=== PATIENT | female | born 2000 | race American Indian/Alaskan Native ===

== ENCOUNTER 2020-10-12 21:39 | Inpatient (IN) | payer BC ==
[2020-10-13] MEDS ORDERED: Sodium Chloride 0.9% 10 ML Syringe FLUSH PRN (00:31)
[2020-10-13] MEDS ORDERED: Ondansetron 4 MG/2 ML SDV IVPUSH PRN (00:31)
[2020-10-13] MEDS ORDERED: Oxytocin/Lactated Ringers 10 UNIT/1,000 ML BAG IV SCH (00:45)
[2020-10-13] MEDS: Lactated Ringers 1,000 ML IV SCH ×2 (01:51→18:26)
[2020-10-13] MEDS: Oxytocin/Lactated Ringers 10 UNIT/1,000 ML BAG IV SCH ×2 (01:52→18:27)
--- NOTE | 2020-10-13 08:48 | PCM.LDHP ---
L&D History of Present Illness - General Date of Service: 10/13/20 Admit Problem/Dx: Patient Status Order with Admit Dx/Problem 10/12/20 21:41 Patient Status [ADT] Routine 10/13/20 00:31 Patient Status [ADT] Routine Admission Diagnosis/Problem Admission Diagnosis/Problem Source of Information: Patient History Limitations: Reports: No Limitations - History of Present Illness Introduction:: 20 y/o at 37 3/7 wks who presented overnight for concerns of abdominal pain. SVE showed similar exam to previous. During assessment, however, was noted to have several mild range BP's. Otherwise doing well. 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: : 1 Para: 0 LMP (Approximate): Endocrine/Metabolic History: Reports: Obesity/BMI 30+ Social & Family History - Family History Family Medical History: No Pertinent Family History - Tobacco Use Tobacco Use Status *Q: Never Tobacco User Second Hand Smoke Exposure: No - Caffeine Use Caffeine Use: Reports: None - Alcohol Use Alcohol Use History: No - Recreational Drug Use Recreational Drug Use: No H&P Review of Systems - Review of Systems: Review Of Systems: See Below General: Reports: No Symptoms Pulmonary: Reports: No Symptoms Cardiovascular: Reports: No Symptoms Gastrointestinal: Reports: No Symptoms Genitourinary: Reports: No Symptoms Musculoskeletal: Reports: No Symptoms Psychiatric: Reports: No Symptoms Neurological: Reports: No Symptoms L&D Exam - Exam Exam: See Below - Vital Signs Vital Signs: Last Vital Signs Temp 36.6 C 10/12/20 21:41 Pulse 70 10/12/20 21:41 Resp 16 10/12/20 21:41 BP 120/82 10/12/20 21:41 Pulse Ox 98 10/12/20 21:41 Weight: 126.099 kg - OB Specific Contraction Intensity: Mild Movement: Active Heart Tones: Present Heart Tones per Min: 130 Heart Rate (FHR) Variability: Moderate (6-25 bmp) Presentation: Vertex - Davidson Score Davidson Score Cervix Position: Midposition Davidson Score Consistency: Soft Davidson Score Effacement: 51-70% Davidson Score Dilation: 3-4 cm Davidson Score Infant's Station: -2 Davidson Score Total: 8 - Exam General: Alert, Oriented, Cooperative Lungs: Clear to Auscultation, Normal Respiratory Effort Cardiovascular: Regular Rate, Regular Rhythm GI/Abdominal Exam: Soft, Non-Tender Genitourinary: Normal external exam Back Exam: Normal Inspection Skin: Warm, Dry, Intact - Patient Data Lab Results Last 24 hrs: Laboratory Results - last 24 hr 10/12/20 10/13/20 10/13/20 Range/Units 22:05 01:00 01:00 WBC 13.71 H (3.98-10.04) K/mm3 RBC 4.43 (3.98-5.22) M/mm3 Hgb 11.4 (11.2-15.7) gm/dl Hct 36.7 (34.1-44.9) % MCV 82.8 (79.4-94.8) fl MCH 25.7 (25.6-32.2) pg MCHC 31.1 L (32.2-35.5) g/dl RDW Std Deviation 42.9 (36.4-46.3) fL Plt Count 291 (182-369) K/mm3 MPV 11.4 (9.4-12.3) fl Neut % (Auto) 72.5 H (34.0-71.1) % Lymph % (Auto) 18.1 L (19.3-51.7) % Dick[place] % (Auto) 7.4 (4.7-12.5) % Eos % (Auto) 0.9 (0.7-5.8) Baso % (Auto) 0.1 (0.1-1.2) % Neut # (Auto) 9.94 H (1.56-6.13) K/mm3 Lymph # (Auto) 2.48 (1.18-3.74) K/mm3 Dickens # (Auto) 1.01 H (0.24-0.36) K/mm3 Eos # (Auto) 0.12 (0.04-0.36) K/mm3 Baso # (Auto) 0.02 (0.01-0.08) K/mm3 Manual Slide Review Normal smear Creatinine 0.8 (0.55-1.02) mg/dL Est Cr Clr Drug Dosing 103.26 mL/min Estimated GFR (MDRD) > 60 (>60) mL/min AST 10 L (15-37) U/L ALT 16 (14-59) U/L Ur Random Creatinine (30.0-125.0) mg/dL U Random Total Protein (0.0-11.8) mg/dL Protein/Creatinin Ratio (0-149) mg/g Membrane Rupture Negative SARS-CoV-2 RNA (MAE) (NEGATIVE) 10/13/20 10/13/20 Range/Units 01:15 01:15 WBC (3.98-10.04) K/mm3 RBC (3.98-5.22) M/mm3 Hgb (11.2-15.7) gm/dl Hct (34.1-44.9) % MCV (79.4-94.8) fl MCH (25.6-32.2) pg MCHC (32.2-35.5) g/dl RDW Std Deviation (36.4-46.3) fL Plt Count (182-369) K/mm3 MPV (9.4-12.3) fl Neut % (Auto) (34.0-71.1) % Lymph % (Auto) (19.3-51.7) % [place] % (Auto) (4.7-12.5) % Eos % (Auto) (0.7-5.8) Baso % (Auto) (0.1-1.2) % Neut # (Auto) (1.56-6.13) K/mm3 Lymph # (Auto) (1.18-3.74) K/mm3 [place] # (Auto) (0.24-0.36) K/mm3 Eos # (Auto) (0.04-0.36) K/mm3 Baso # (Auto) (0.01-0.08) K/mm3 Manual Slide Review Creatinine (0.55-1.02) mg/dL Est Cr Clr Drug Dosing mL/min Estimated GFR (MDRD) (>60) mL/min AST (15-37) U/L ALT (14-59) U/L Ur Random Creatinine 85.0 (30.0-125.0) mg/dL U Random Total Protein 29.8 H (0.0-11.8) mg/dL Protein/Creatinin Ratio 350.6 H (0-149) mg/g Membrane Rupture SARS-CoV-2 RNA (MAE) Negative (NEGATIVE) Result Diagrams: 10/13/20 01:00 10/13/20 01:00 - Problem List (1) 37 weeks gestation of SNOMED Code(s): 13681101 ICD Code: Z3A.37 - 37 WEEKS GESTATION OF Status: Acute Current Visit: Yes (2) Preeclampsia SNOMED Code(s): 464731666 ICD Code: O14.90 - UNSPECIFIED PRE-ECLAMPSIA, UNSPECIFIED TRIMESTER Status: Acute Current Visit: Yes Qualifiers: Trimester: third trimester Qualified Code(s): O14.93 - Unspecified pre- eclampsia, third trimester Problem List Initiated/Reviewed/Updated: Yes Orders Last 24hrs: Active Orders 24 hr Category Date Time Status Patient Status [ADT] Routine ADT 10/13/20 00:31 Active Activity as Tolerated [RC] PFP Care 10/13/20 00:31 Active Communication Order [RC] ASDIRECTED Care 10/13/20 00:31 Active Heart Tones [RC] ASDIRECTED Care 10/13/20 00:32 Active Non Stress Test [RC] PER UNIT ROUTINE Care 10/12/20 21:41 Active Notify Provider [RC] PFP Care 10/13/20 00:31 Active Notify Provider [RC] PRN Care 10/13/20 00:31 Active Peripheral IV Care [RC] . DIRECTED Care 10/13/20 00:32 Active Vaginal Exam [RC] PRN Care 10/12/20 21:42 Active Vital Signs [RC] PER UNIT ROUTINE Care 10/12/20 21:41 Active Consult to Case Management/Stave Log Ripsaw Operator [CONS] Cons 10/13/20 08:29 Active Routine BLOOD BANK HOLD SPECIMEN [BBK] Stat Lab 10/13/20 01:00 Received RAPID PLASMA REAGIN,RPR [CHEM] Routine Lab 10/13/20 01:00 Received Lactated Ringers [Ringers, Lactated] 1,000 ml Med 10/13/20 00:45 Active IV ASDIRECTED Nalbuphine [Nubain] Med 10/13/20 00:31 Active 10 mg IVPUSH Q2H PRN Ondansetron [Zofran] Med 10/13/20 00:31 Active 4 mg IVPUSH Q4H PRN Oxytocin/Lactated Ringers [Pitocin in LR 10 Units/1,000 Med 10/13/20 00:45 Active ML] 10 unit in 1,000 ml IV .CONTINUOUS Oxytocin/Lactated Ringers [Pitocin in LR 10 Units/1,000 Med 10/13/20 00:45 Active ML] 10 unit in 1,000 ml IV TITRATE Sodium Chloride 0.9% [Saline Flush] Med 10/13/20 00:31 Active 10 ml FLUSH ASDIRECTED PRN Electronic Heart Tones Ext w TOCO [WOMSER] Oth 10/13/20 00:31 Ordered Routine Electronic Heart Tones Internal [WOMSER] Per Unit Oth 10/13/20 00:31 Ordered Routine Peripheral IV Insertion Adult [OM.PC] Routine Oth 10/13/20 00:31 Ordered Resuscitation Status Routine Resus Stat 10/12/20 21:41 Ordered Medication Orders Lactated Ringer's (Ringers, Lactated) 1,000 mls @ 100 mls/hr IV ASDIRECTED JOANIE Last Admin: 10/13/20 01:51 Dose: 100 mls/hr Documented by: MIRNA Oxytocin/Lactated Ringer's (Pitocin In Lr 10 Units/1,000 Ml) 10 unit in 1,000 mls @ 500 mls/hr IV .CONTINUOUS JOANIE Oxytocin/Lactated Ringer's (Pitocin In Lr 10 Units/1,000 Ml) 10 unit in 1,000 mls @ 12 mls/hr IV TITRATE JOANIE; Protocol Last Titration: 10/13/20 07:55 Dose: 8 munits/min, 48 mls/hr Documented by: Titration: 10/13/20 04:45 Dose: 6 munits/min, 36 mls/hr Documented by: Titration: 10/13/20 04:16 Dose: 4 munits/min, 24 mls/hr Documented by: Admin: 10/13/20 01:52 Dose: 2 munits/min, 12 mls/hr Documented by: MIRNA Nalbuphine HCl (Nubain) 10 mg IVPUSH Q2H PRN PRN Reason: Pain Ondansetron HCl (Zofran) 4 mg IVPUSH Q4H PRN PRN Reason: Nausea/Vomiting Sodium Chloride (Saline Flush) 10 ml FLUSH ASDIRECTED PRN PRN Reason: Keep Vein Open Assessment/Plan Comment:: Patient with mild range BP's and elevated urine protein to creatinine ratio. Will treat as preeclampsia without severe features. Pitocin previously started for IOL AROM done now at 0230 with release of a large amount of clear fluid. GBS negative. Pain management per patient preference. Anticipate .
[2020-10-13] MEDS: Nalbuphine 10 MG/1 ML Vial IVPUSH PRN ×2 (09:17→15:17)
--- NOTE | 2020-10-13 09:17 | PCM.PNLD ---
Labor Progress Note - VS & Meds Vital Signs: Last Vital Signs Temp 36.6 C 10/12/20 21:41 Pulse 70 10/12/20 21:41 Resp 16 10/12/20 21:41 BP 120/82 10/12/20 21:41 Pulse Ox 98 10/12/20 21:41 Active Medications: Current Medications Lactated Ringer's (Ringers, Lactated) 1,000 mls @ 100 mls/hr IV ASDIRECTED JOANIE Last Admin: 10/13/20 01:51 Dose: 100 mls/hr Documented by: Oxytocin/Lactated Ringer's (Pitocin In Lr 10 Units/1,000 Ml) 10 unit in 1,000 mls @ 500 mls/hr IV .CONTINUOUS JOANIE Oxytocin/Lactated Ringer's (Pitocin In Lr 10 Units/1,000 Ml) 10 unit in 1,000 mls @ 12 mls/hr IV TITRATE JOANIE; Protocol Last Titration: 10/13/20 07:55 Dose: 8 munits/min, 48 mls/hr Documented by: Nalbuphine HCl (Nubain) 10 mg IVPUSH Q2H PRN PRN Reason: Pain Ondansetron HCl (Zofran) 4 mg IVPUSH Q4H PRN PRN Reason: Nausea/Vomiting Sodium Chloride (Saline Flush) 10 ml FLUSH ASDIRECTED PRN PRN Reason: Keep Vein Open - Uterine Contractions Uterine Monitoring Mode: External [place] Contraction Intensity: Moderate - Monitoring Monitor Mode: External Ultrasound Heart Rate (FHR) Baseline: 125 Heart Rate (FHR) Variability: Moderate (6-25 bmp) Accelerations: Present, 15x15 Decelerations: None Strip Review: Category I - Vaginal Exam Dilation (cm): 4-5 Effacement (Percent): 90 Station: -1 Cervical Position: Midposition - Labor Progress (Free Text) Labor Progress: Patient very uncomfortable. Does not want epidural at this time. Going to do d ose of Nubain. BP's continue to be mild range. Pitocin at 8. IUPC placed. Continue present management
--- NOTE | 2020-10-13 15:24 | PCM.SN.2 ---
- Free Text/Narrative Note: 1525 Patient with significant pain. Pitocin at 18. Does not want an epidural. Does not want IUPC in further. Removed per her request. tried to encourage patient . Will given dose of Nubain. Mouna Mazariegos MD
[2020-10-13] MEDS ORDERED: Lidocaine 1% 50 ML MDV ONE (19:16)
[2020-10-13] MEDS ORDERED: Misoprostol 200 MCG Tab ONE (20:32)
[2020-10-13] MEDS ORDERED: ceFAZolin/Dextrose,Iso-Osmotic 2 GM/50 ML Duplex Bag IV ONE (20:53)
[2020-10-13] MEDS ORDERED: Misoprostol 200 MCG Tab PO STA (21:01)
[2020-10-13] MEDS ORDERED: ceFAZolin 2 GM in Premix Bag 1 BAG IV ONE (21:01)
[2020-10-13] MEDS ORDERED: Methylergonovine 0.2 MG/1 ML Amp IM STA (21:01)
[2020-10-13] MEDS ORDERED: Carboprost Tromethamine 250 MCG/1 ML Amp IM ONE (21:01)
--- NOTE | 2020-10-13 21:05 | PCM.DEL ---
L & D Note - General Info Date of Service: 10/13/20 - Delivery Note Labor: Induced by ARM, Induced by Oxytocin Delivery Outcome: Livebirth Infant Delivery Method: Spontaneous Vaginal Delivery-Single Infant Delivery Mode: Spontaneous Presentation: Right Occiput Anterior (DASHAWN) Nuchal Cord: None Anesthesia Type: None Amniotic Fluid Description: Clear Episiotomy Type: None Laceration: Labial (left labial - hemostatic and so not repaired ) Placenta: Intact, Spontaneous Cord: 3 Vessels Estimated Blood Loss: 1,200 Resuscitation Needed: Yes [place]: Bulb Syringe, Stimulated, Warmed, [place] Used, Warmer Used Delivery Comments (Free Text/Narrative):: Patient found to be complete and began pushing. With maternal pushing effort head delivered from DASHAWN presentation. No nuchal cord present. With gentle downward traction shoulders and body delivered. placed on maternal abdomen. Cord clamped and cut. Cord blood obtained. Placenta allowed time to separate and expelled intact. Immediately after hemorrhage noted due to atony. Patient given 600 mcg of buccal Cytotec and 250 mcg of hemabate, but still with moderately terrell bleeding. Given then Tranexamic acid. Multiple sweeps done of uterus and GRADY bringing out more clot . Because of continued atony patient was given 0.2 mg of methergine even with history of preeclampsia. At this time BP's normal range. Finally bleeding did tatianna. Total EBL ~1200. Vaginal exam with small labial laceration on left - not bleeding and so not repaired - General Info Date of Service: 10/13/20 - Patient Data Vitals - Most Recent: Last Vital Signs Temp 36.6 C 10/12/20 21:41 Pulse 70 10/12/20 21:41 Resp 16 10/12/20 21:41 BP 120/82 10/12/20 21:41 Pulse Ox 98 10/12/20 21:41 Weight - Most Recent: 126.099 kg - Problem List & Annotations (1) 37 weeks gestation of SNOMED Code(s): 73600770 Code(s): Z3A.37 - 37 WEEKS GESTATION OF Status: Acute Current Visit: Yes (2) Preeclampsia SNOMED Code(s): 468169109 Code(s): O14.90 - UNSPECIFIED PRE-ECLAMPSIA, UNSPECIFIED TRIMESTER Status: Acute Current Visit: Yes Qualifiers: Trimester: third trimester Qualified Code(s): O14.93 - Unspecified pre- eclampsia, third trimester (3) Vaginal delivery SNOMED Code(s): 580582239 Code(s): O80 - ENCOUNTER FOR FULL-TERM UNCOMPLICATED DELIVERY Status: Acute Current Visit: Yes (4) hemorrhage SNOMED Code(s): 97493312 Code(s): O72.1 - OTHER IMMEDIATE HEMORRHAGE Status: Acute Current Visit: Yes Qualifiers: hemorrhage type: other immediate Qualified Code(s): O72.1 - Other immediate hemorrhage - Problem List Review Problem List Initiated/Reviewed/Updated: Yes - My Orders Last 24 Hours: My Active Orders 10/12/20 21:41 Non Stress Test [RC] PER UNIT ROUTINE Vital Signs [RC] PER UNIT ROUTINE Resuscitation Status Routine 10/12/20 21:42 Vaginal Exam [RC] PRN 10/13/20 00:31 Patient Status [ADT] Routine Activity as Tolerated [RC] PFP Communication Order [RC] ASDIRECTED Notify Provider [RC] PFP Notify Provider [RC] PRN Nalbuphine [Nubain] 10 mg IVPUSH Q2H PRN Ondansetron [Zofran] 4 mg IVPUSH Q4H PRN Sodium Chloride 0.9% [Saline Flush] 10 ml FLUSH ASDIRECTED PRN Electronic Heart Tones Ext w TOCO [WOMSER] Routine Electronic Heart Tones Internal [WOMSER] Per Unit Routine Peripheral IV Insertion Adult [OM.PC] Routine 10/13/20 00:32 Heart Tones [RC] ASDIRECTED Peripheral IV Care [RC] . DIRECTED 10/13/20 00:45 Lactated Ringers [Ringers, Lactated] 1,000 ml IV ASDIRECTED Oxytocin/Lactated Ringers [Pitocin in LR 10 Units/1,000 ML] 10 unit in 1,000 ml IV .CONTINUOUS Oxytocin/Lactated Ringers [Pitocin in LR 10 Units/1,000 ML] 10 unit in 1,000 ml IV TITRATE 10/13/20 01:00 BLOOD BANK HOLD SPECIMEN [BBK] Stat RAPID PLASMA REAGIN,RPR [CHEM] Routine 10/13/20 08:29 Consult to Case Management/Dentist [CONS] Routine 10/13/20 Lunch Regular Diet [DIET] 10/13/20 21:01 Carboprost Tromethamine [Hemabate DS] 250 mcg IM ONETIME ONE Methylergonovine [Methergine] 0.2 mg IM NOW STA Tranexamic Acid [Cyklokapron] 1,000 mg IVPUSH ONETIME ONE ceFAZolin [Ancef] 2 gm Premix Bag 1 bag IV ONETIME miSOPROStoL [Cytotec] 600 mcg PO NOW STA 10/13/20 21:03 Patient Status Manage Transfer [TRANSFER] Routine - Assessment Assessment:: PPD#0 - Plan Plan:: * Monitor BP's closely following delivery. Will need BP check in about 1 week * Monitor bleeding closely. Received Cytotec, Hemabate, Tranexamic acid, and Methergine after delivery. CBC tomorrow at noon. Dose of ancef ordered for multiple sweeps of uterus * Breast feeding * Discharge home in 2 days
[2020-10-13] MEDS ORDERED: Acetaminophen 325 MG Tab PO PRN (21:56)
[2020-10-13] MEDS ORDERED: Witch Hazel Medicated Pads 40/Jar TOP PRN (21:56)
[2020-10-13] MEDS ORDERED: Benzocaine/Menthol 20%-0.5% Spray 56 GM Canister TOP PRN (21:56)
[2020-10-13] MEDS: Ibuprofen 600 MG Tab PO PRN (22:13)
[2020-10-14] MEDS: Lactated Ringers 1,000 ML IV SCH (04:14)
[2020-10-14] MEDS: Docusate Sodium 100 MG Cap PO PRN (09:21)
--- NOTE | 2020-10-14 10:17 | PCM.SN.2 ---
- Free Text/Narrative Note: exam Afebrile, chest clear, uterus at umbilicus -1. No heavy vaginal bleeding. No leg cramping.
[2020-10-14] MEDS: Ibuprofen 600 MG Tab PO PRN ×2 (11:22→18:42)
--- NOTE | 2020-10-15 10:39 | PCM.DCSUM1 ---
Discharge Summary - Hospital Course Free Text/Narrative:: [place] [facility] L/D Delivery Note Patient Name: CATALINO GARCIA Date of : 89 Patient Status: Inpatient Attending Provider: Mouna Mazariegos Date: 10/13/20 21:05 Initialization Date: 10/13/20 21:05 L & D Note - General Info Date of Service: 10/13/20 - Delivery Note Labor: Induced by ARM, Induced by Oxytocin Delivery Outcome: Livebirth Delivery Method: Spontaneous Vaginal Delivery-Single Delivery Mode: Spontaneous Presentation: Right Occiput Anterior (DASHAWN) Nuchal Cord: None Anesthesia Type: None Amniotic Fluid Description: Clear Episiotomy Type: None Laceration: Labial (left labial - hemostatic and so not repaired ) Placenta: Intact, Spontaneous Cord: 3 Vessels Estimated Blood Loss: 1,200 Resuscitation Needed: Yes : Bulb Syringe, Stimulated, Warmed, Winton Used, Warmer Used Delivery Comments (Free Text/Narrative):: Patient found to be complete and began pushing. With maternal pushing effort head delivered from DASHAWN presentation. No nuchal cord present. With gentle downward traction shoulders and body delivered. Infant placed on maternal abdomen. Cord clamped and cut. Cord blood obtained. Placenta allowed time to separate and expelled intact. Immediately after hemorrhage noted due to atony. Patient given 600 mcg of buccal Cytotec and 250 mcg of hemabate, but still with moderately terrell bleeding. Given then Tranexamic acid. Multiple sweeps done of uterus and GRADY bringing out more clot . Because of continued atony patient was given 0.2 mg of methergine even with history of preeclampsia. At this time BP's normal range. Finally bleeding did tatianna. Total EBL ~1200. Vaginal exam with small labial laceration on left - not bleeding and so not repaired - General Info Date of Service: 10/13/20 - Patient Data Vitals - Most Recent: Last Vital Signs Temp 36.6 C 10/12/20 21:41 Pulse 70 10/12/20 21:41 Resp 16 10/12/20 21:41 BP 120/82 10/12/20 21:41 Pulse Ox 98 10/12/20 21:41 Weight - Most Recent: 126.099 kg - Problem List & Annotations (1) 37 weeks gestation of SNOMED Code(s): 32392156 Code(s): Z3A.37 - 37 WEEKS GESTATION OF Status: Acute Current Visit: Yes (2) Preeclampsia SNOMED Code(s): 762532093 Code(s): O14.90 - UNSPECIFIED PRE-ECLAMPSIA, UNSPECIFIED TRIMESTER Status: Acute Current Visit: Yes Qualifiers: Trimester: third trimester Qualified Code(s): O14.93 - Unspecified pre- eclampsia, third trimester (3) Vaginal delivery SNOMED Code(s): 009624881 Code(s): O80 - ENCOUNTER FOR FULL-TERM UNCOMPLICATED DELIVERY Status: Acute Current Visit: Yes (4) hemorrhage SNOMED Code(s): 56340314 Code(s): O72.1 - OTHER IMMEDIATE HEMORRHAGE Status: Acute Current Visit: Yes Qualifiers: hemorrhage type: other immediate Qualified Code(s): O72.1 - Other immediate hemorrhage - Problem List Review Problem List Initiated/Reviewed/Updated: Yes - My Orders Last 24 Hours: My Active Orders 10/12/20 21:41 Non Stress Test [RC] PER UNIT ROUTINE Vital Signs [RC] PER UNIT ROUTINE Resuscitation Status Routine 10/12/20 21:42 Vaginal Exam [RC] PRN 10/13/20 00:31 Patient Status [ADT] Routine Activity as Tolerated [RC] PFP Communication Order [RC] ASDIRECTED Notify Provider [RC] PFP Notify Provider [RC] PRN Nalbuphine [Nubain] 10 mg IVPUSH Q2H PRN Ondansetron [Zofran] 4 mg IVPUSH Q4H PRN Sodium Chloride 0.9% [Saline Flush] 10 ml FLUSH ASDIRECTED PRN Electronic Heart Tones Ext w TOCO [WOMSER] Routine Electronic Heart Tones Internal [WOMSER] Per Unit Routine Peripheral IV Insertion Adult [OM.PC] Routine 10/13/20 00:32 Heart Tones [RC] ASDIRECTED Peripheral IV Care [RC] . DIRECTED 10/13/20 00:45 Lactated Ringers [Ringers, Lactated] 1,000 ml IV ASDIRECTED Oxytocin/Lactated Ringers [Pitocin in LR 10 Units/1,000 ML] 10 unit in 1,000 ml IV .CONTINUOUS Oxytocin/Lactated Ringers [Pitocin in LR 10 Units/1,000 ML] 10 unit in 1,000 ml IV TITRATE 10/13/20 01:00 BLOOD BANK HOLD SPECIMEN [BBK] Stat RAPID PLASMA REAGIN,RPR [CHEM] Routine 10/13/20 08:29 Consult to Case Management/Food Preparation Supervisor [CONS] Routine 10/13/20 Lunch Regular Diet [DIET] 10/13/20 21:01 Carboprost Tromethamine [Hemabate DS] 250 mcg IM ONETIME ONE Methylergonovine [Methergine] 0.2 mg IM NOW STA Tranexamic Acid [Cyklokapron] 1,000 mg IVPUSH ONETIME ONE ceFAZolin [Ancef] 2 gm Premix Bag 1 bag IV ONETIME miSOPROStoL [Cytotec] 600 mcg PO NOW STA 10/13/20 21:03 Patient Status Manage Transfer [TRANSFER] Routine - Assessment Assessment:: PPD#0 - Plan Plan:: * Monitor BP's closely following delivery. Will need BP check in about 1 week * Monitor bleeding closely. Received Cytotec, Hemabate, Tranexamic acid, and Methergine after delivery. CBC tomorrow at noon. Dose of ancef ordered for multiple sweeps of uterus * Breast feeding * Discharge home in 2 days HPI Initial Comments: [place] [facility] L/D Delivery Note Patient Name: CATALINO GARCIA Date of : [birth year] Patient Status: Inpatient Attending Provider: Mouna Mazariegos Date: 10/13/20 21:05 Initialization Date: 10/13/20 21:05 L & D Note - General Info Date of Service: 10/13/20 - Delivery Note Labor: Induced by ARM, Induced by Oxytocin Delivery Outcome: Livebirth Delivery Method: Spontaneous Vaginal Delivery-Single Delivery Mode: Spontaneous Presentation: Right Occiput Anterior (DASHAWN) Nuchal Cord: None Anesthesia Type: None Amniotic Fluid Description: Clear Episiotomy Type: None Laceration: Labial (left labial - hemostatic and so not repaired ) Placenta: Intact, Spontaneous Cord: 3 Vessels Estimated Blood Loss: 1,200 Resuscitation Needed: Yes [place]: Bulb Syringe, Stimulated, Warmed, Winton Used, Warmer Used Delivery Comments (Free Text/Narrative):: Patient found to be complete and began pushing. With maternal pushing effort head delivered from DASHAWN presentation. No nuchal cord present. With gentle downward traction shoulders and body delivered. Infant placed on maternal abdomen. Cord clamped and cut. Cord blood obtained. Placenta allowed time to separate and expelled intact. Immediately after hemorrhage noted due to atony. Patient given 600 mcg of buccal Cytotec and 250 mcg of hemabate, but still with moderately terrell bleeding. Given then Tranexamic acid. Multiple sweeps done of uterus and GRADY bringing out more clot . Because of continued atony patient was given 0.2 mg of methergine even with history of preeclampsia. At this time BP's normal range. Finally bleeding did tatianna. Total EBL ~1200. Vaginal exam with small labial laceration on left - not bleeding and so not repaired - General Info Date of Service: 10/13/20 - Patient Data Vitals - Most Recent: Last Vital Signs Temp 36.6 C 10/12/20 21:41 Pulse 70 10/12/20 21:41 Resp 16 10/12/20 21:41 BP 120/82 10/12/20 21:41 Pulse Ox 98 10/12/20 21:41 Weight - Most Recent: 126.099 kg - Problem List & Annotations (1) 37 weeks gestation of SNOMED Code(s): 13594347 Code(s): Z3A.37 - 37 WEEKS GESTATION OF Status: Acute Current Visit: Yes (2) Preeclampsia SNOMED Code(s): 710781641 Code(s): O14.90 - UNSPECIFIED PRE-ECLAMPSIA, UNSPECIFIED TRIMESTER Status: Acute Current Visit: Yes Qualifiers: Trimester: third trimester Qualified Code(s): O14.93 - Unspecified pre- eclampsia, third trimester (3) Vaginal delivery SNOMED Code(s): 570425687 Code(s): O80 - ENCOUNTER FOR FULL-TERM UNCOMPLICATED DELIVERY Status: Acute Current Visit: Yes (4) hemorrhage SNOMED Code(s): 42013300 Code(s): O72.1 - OTHER IMMEDIATE HEMORRHAGE Status: Acute Current Visit: Yes Qualifiers: hemorrhage type: other immediate Qualified Code(s): O72.1 - Other immediate hemorrhage - Problem List Review Problem List Initiated/Reviewed/Updated: Yes - My Orders Last 24 Hours: My Active Orders 10/12/20 21:41 Non Stress Test [RC] PER UNIT ROUTINE Vital Signs [RC] PER UNIT ROUTINE Resuscitation Status Routine 10/12/20 21:42 Vaginal Exam [RC] PRN 10/13/20 00:31 Patient Status [ADT] Routine Activity as Tolerated [RC] PFP Communication Order [RC] ASDIRECTED Notify Provider [RC] PFP Notify Provider [RC] PRN Nalbuphine [Nubain] 10 mg IVPUSH Q2H PRN Ondansetron [Zofran] 4 mg IVPUSH Q4H PRN Sodium Chloride 0.9% [Saline Flush] 10 ml FLUSH ASDIRECTED PRN Electronic Heart Tones Ext w TOCO [WOMSER] Routine Electronic Heart Tones Internal [WOMSER] Per Unit Routine Peripheral IV Insertion Adult [OM.PC] Routine 10/13/20 00:32 Heart Tones [RC] ASDIRECTED Peripheral IV Care [RC] . DIRECTED 10/13/20 00:45 Lactated Ringers [Ringers, Lactated] 1,000 ml IV ASDIRECTED Oxytocin/Lactated Ringers [Pitocin in LR 10 Units/1,000 ML] 10 unit in 1,000 ml IV .CONTINUOUS Oxytocin/Lactated Ringers [Pitocin in LR 10 Units/1,000 ML] 10 unit in 1,000 ml IV TITRATE 10/13/20 01:00 BLOOD BANK HOLD SPECIMEN [BBK] Stat RAPID PLASMA REAGIN,RPR [CHEM] Routine 10/13/20 08:29 Consult to Case Management/Food Preparation Supervisor [CONS] Routine 10/13/20 Lunch Regular Diet [DIET] 10/13/20 21:01 Carboprost Tromethamine [Hemabate DS] 250 mcg IM ONETIME ONE Methylergonovine [Methergine] 0.2 mg IM NOW STA Tranexamic Acid [Cyklokapron] 1,000 mg IVPUSH ONETIME ONE ceFAZolin [Ancef] 2 gm Premix Bag 1 bag IV ONETIME miSOPROStoL [Cytotec] 600 mcg PO NOW STA 10/13/20 21:03 Patient Status Manage Transfer [TRANSFER] Routine - Assessment Assessment:: PPD#0 - Plan Plan:: * Monitor BP's closely following delivery. Will need BP check in about 1 week * Monitor bleeding closely. Received Cytotec, Hemabate, Tranexamic acid, and Methergine after delivery. CBC tomorrow at noon. Dose of ancef ordered for multiple sweeps of uterus * Breast feeding * Discharge home in 2 days Brief History: [facility] L[facility] . L[facility]D Delivery [facility]. [id number]. Date of : [birth year]Patient Status: Inpatient. Attending Provider: Mouna Mazariegos CAccount Number: [id number]. Date: 10/13/20 21:05Initialization Date: 10/13/20 21:05. L & D Note. - General Info. Date of Service: 10/13/20. - Delivery Note. Labor: Induced by ARM, Induced by Oxytocin. Delivery Outcome: Livebirth. Infant Delivery Method: Spontaneous Vaginal Delivery-Single. Delivery Mode: Spontaneous. Presentation: Right Occiput Anterior (DASHAWN). Nuchal Cord: None. Anesthesia Type: None. Amniotic Fluid Description: Clear. Episiotomy Type: None. Laceration: Labial (left labial - hemostatic and so not repaired ). Placenta: Intact, Spontaneous. Cord: 3 Vessels. Estimated Blood Loss: 1,200. Resuscitation Needed: Yes. : Bulb Syringe, Stimulated, Warmed, Winton Used, Warmer Used. Delivery Comments (Free Text/Narrative):: Patient found to be complete and began pushing. With maternal pushing effort head delivered from DASHAWN presentation. No nuchal cord present. With gentle downward traction shoulders and body delivered. Infant placed on maternal abdomen. Cord clamped and cut. Cord blood obtained. Placenta allowed time to separate and expelled intact. Immediately after hemorrhage noted due to atony. Patient given 600 mcg of buccal Cytotec and 250 mcg of hemabate, but still with moderately terrell bleeding. Given then Tranexamic acid. Multiple sweeps done of uterus and GRADY bringing out more clot . Because of continued a christy patient was given 0.2 mg of methergine even with history of preeclampsia. At this time BP's normal range. Finally bleeding did tatianna. Total EBL ~1200. Vaginal exam with small labial laceration on left - not bleeding and so not repaired. - General Info. Date of Service: 10/13/20. - Patient Data. Vitals - Most Recent: Last Vital Signs. Temp 36.6 C 10/12/20 21:41. Pulse 70 10/12/20 21:41. Resp 16 10/12/20 21:41. BP 120/82 10/12/20 21:41. Pulse Ox 98 10/12/20 21:41. Weight - Most Recent: 126.099 kg. - Problem List & Annotations. (1) 37 weeks gestation of . SNOMED Code(s): 38523509. Code(s): Z3A.37 - 37 WEEKS GESTATION OF Status: Acute Current Visit: Yes. (2) Preeclampsia. SNOMED Code(s): 016878793. Code(s): O14.90 - UNSPECIFIED PRE-ECLAMPSIA, UNSPECIFIED TRIMESTER Status: Acute Current Visit: Yes. Qualifiers: Trimester: third trimester Qualified Code(s): O14.93 - Unspecified pre-eclampsia, third trimester. (3) Vaginal delivery. SNOMED Code(s): 956769190. Code(s): O80 - ENCOUNTER FOR FULL-TERM UNCOMPLICATED DELIVERY Status: Acute Current Visit: Yes. (4) hemorrhage. SNOMED Code(s): 59124535. Code(s): O72.1 - OTHER IMMEDIATE HEMORRHAGE Status: Acute Current Visit: Yes. Qualifiers: hemorrhage type: other immediate Qualified Code(s): O72.1 - Other immediate hemorrhage. - Problem List Review. Problem List Initiated/Reviewed/Updated: Yes. - My Orders. Last 24 Hours: My Active Orders. 10/12/20 21:41. Non Stress Test [RC] PER UNIT ROUTINE. Vital Signs [RC] PER UNIT ROUTINE. Resuscitation Status Routine. 10/12/20 21:42. Vaginal Exam [RC] PRN. 10/13/20 00:31. Patient Status [ADT] Routine. Activity as Tolerated [RC] PFP. Communication Order [RC] ASDIRECTED. Notify Provider [RC] PFP. Notify Provider [RC] PRN. Nalbuphine [Nubain] 10 mg IVPUSH Q2H PRN. Ondansetron [Zofran] 4 mg IVPUSH Q4H PRN. Sodium Chloride 0.9% [Saline Flush] 10 ml FLUSH ASDIRECTED PRN. Electronic Heart Tones Ext w TOCO [WOMSER] Routine. Electronic Heart Tones Internal [WOMSER] Per Unit Routine. Peripheral IV Insertion Adult [OM.PC] Routine. 10/13/20 00:32. Heart Tones [RC] ASDIRECTED. Peripheral IV Care [RC] . DIRECTED. 10/13/20 00:45. Lactated Ringers [Ringers, Lactated] 1,000 ml IV ASDIRECTED. Oxytocin/Lactated Ringers [Pitocin in LR 10 Units/1,000 ML] 10 unit in 1,000 ml IV .CONTINUOUS. Oxytocin/Lactated Ringers [Pitocin in LR 10 Units/1,000 ML] 10 unit in 1,000 ml IV TITRATE. 10/13/20 01:00. BLOOD BANK HOLD SPECIMEN [BBK] Stat. RAPID PLASMA REAGIN,RPR [CHEM] Routine. 10/13/20 08:29. Consult to Case Management/Food Preparation Supervisor [CONS] Routine. 10/13/20 Lunch. Regular Diet [DIET]. 10/13/20 21:01. Carboprost Tromethamine [Hemabate DS] 250 mcg IM ONETIME ONE. Methylergonovine [Methergine] 0.2 mg IM NOW STA. Tranexamic Acid [Cyklokapron] 1,000 mg IVPUSH ONETIME ONE. ceFAZolin [Ancef] 2 gm Premix Bag 1 bag IV ONETIME. miSOPROStoL [Cytotec] 600 mcg PO NOW STA. 10/13/20 21:03. Patient Status Manage Transfer [TRANSFER] Routine. - Assessment. Assessment:: PPD#0. - Plan. Plan:: Monitor BP's closely following delivery. Will need BP check in about 1 week. Monitor bleeding closely. Received Cytotec, Hemabate, Tranexamic acid, and Methergine after delivery. CBC tomorrow at noon. Dose of ancef ordered for multiple sweeps of uterus. Breast feeding. Discharge home in 2 days Diagnosis: Stroke: No - Discharge Data Discharge Date: 10/15/20 Discharge Disposition: Home, Self-Care 01 Condition: Good - Referral to Home Health Primary Care Physician: Mouna Mazariegos MD - Discharge Diagnosis/Problem(s) (1) Anemia, SNOMED Code(s): 729979107 ICD Code: O90.81 - ANEMIA OF THE PUERPERIUM Status: Acute Current Visit: Yes (2) 37 weeks gestation of SNOMED Code(s): 84740279 ICD Code: Z3A.37 - 37 WEEKS GESTATION OF Status: Acute Current Visit: Yes (3) Preeclampsia SNOMED Code(s): 781343116 ICD Code: O14.90 - UNSPECIFIED PRE-ECLAMPSIA, UNSPECIFIED TRIMESTER Status: Acute Current Visit: Yes Qualifiers: Trimester: third trimester Qualified Code(s): O14.93 - Unspecified pre- eclampsia, third trimester (4) Vaginal delivery SNOMED Code(s): 257565956 ICD Code: O80 - ENCOUNTER FOR FULL-TERM UNCOMPLICATED DELIVERY Status: Acute Current Visit: Yes (5) hemorrhage SNOMED Code(s): 92522065 ICD Code: O72.1 - OTHER IMMEDIATE HEMORRHAGE Status: Acute Current Visit: Yes Qualifiers: hemorrhage type: third-stage Qualified Code(s): O72.0 - Third- stage hemorrhage - Patient Summary/Data Complications: none Consults: none Hospital Course: uneventful - Patient Instructions Diet: Usual Diet as Tolerated Driving: Do Not Drive (48 hours) Showering/Bathing: May Shower Notify Provider of: Fever, Increased Pain, Swelling and Redness, Drainage, Nausea and/or Vomiting - Discharge Plan *PRESCRIPTION DRUG MONITORING PROGRAM REVIEWED*: Not Applicable *COPY OF PRESCRIPTION DRUG MONITORING REPORT IN PATIENT LENNIE: Not Applicable Prescriptions/Med Rec: Iron,Carbonyl/Ascorbic Acid [Iron 100-Vitamin C Tablet] 1 each PO TID #100 tablet Home Medications: Home Meds Vits #93/Iron Fum/FA [ Formula Tablet] 1 each PO DAILY 10/12/20 [History] Acetaminophen [Tylenol] 650 mg PO Q6H PRN tablet 10/15/20 [Rx] Docusate Sodium [Colace] 100 mg PO BID PRN cap 10/15/20 [Rx] Ibuprofen [Motrin] 600 mg PO Q6H PRN tablet 10/15/20 [Rx] Iron,Carbonyl/Ascorbic Acid [Iron 100-Vitamin C Tablet] 1 each PO TID #100 tablet 10/15/20 [Rx] witch Ana Cristina [Tucks] 1 pad TOP ASDIRECTED PRN pad 10/15/20 [Rx] Referrals: Mouna Mazariegos MD [Primary Care Provider] - (Call Dr. Mazariegos's office Friday to make appointment to see her in 2 to 3 weeks) - Discharge Summary/Plan Comment DC Time >30 min.: No - Patient Data Vitals - Most Recent: Last Vital Signs Temp 97.5 F 10/15/20 08:29 Pulse 96 10/15/20 08:29 Resp 16 10/15/20 08:29 BP 126/62 10/15/20 08:29 Pulse Ox 98 10/15/20 08:29 Weight - Most Recent: 278 lb I&O - Last 24 hours: Intake & Output 10/14/20 10/15/20 10/15/20 22:59 06:59 14:59 Intake Total 680 Balance 680 Lab Results - Last 24 hrs: Laboratory Results - last 24 hr 10/14/20 10/15/20 Range/Units 12:00 08:24 WBC 23.08 H 19.34 H (3.98-10.04) K/mm3 RBC 2.97 L 2.93 L (3.98-5.22) M/mm3 Hgb 7.6 L D 7.5 L (11.2-15.7) gm/dl Hct 24.5 L 24.7 L (34.1-44.9) % MCV 82.5 84.3 (79.4-94.8) fl MCH 25.6 25.6 (25.6-32.2) pg MCHC 31.0 L 30.4 L (32.2-35.5) g/dl RDW Std Deviation 41.7 43.8 (36.4-46.3) fL Plt Count 232 253 (182-369) K/mm3 MPV 11.0 11.4 (9.4-12.3) fl Neut % (Auto) 78.0 H (34.0-71.1) % Lymph % (Auto) 14.7 L (19.3-51.7) % Davison % (Auto) 4.8 (4.7-12.5) % Eos % (Auto) 1.3 (0.7-5.8) Baso % (Auto) 0.2 (0.1-1.2) % Neut # (Auto) 15.08 H (1.56-6.13) K/mm3 Lymph # (Auto) 2.84 (1.18-3.74) K/mm3 Davison # (Auto) 0.93 H (0.24-0.36) K/mm3 Eos # (Auto) 0.25 (0.04-0.36) K/mm3 Baso # (Auto) 0.04 (0.01-0.08) K/mm3 Manual Slide Review Abnormal smear Med Orders - Current: Current Medications Acetaminophen (Tylenol) 650 mg PO Q4H PRN PRN Reason: mild pain or fever Benzocaine/Menthol (Dermoplast Pain Relief [place]) 0 gm TOP ASDIRECTED PRN PRN Reason: Perineal Comfort Measure Docusate Sodium (Colace) 100 mg PO BID PRN PRN Reason: Constipation Last Admin: 10/14/20 09:21 Dose: 100 mg Documented by: Ibuprofen (Motrin) 600 mg PO Q6H PRN PRN Reason: Mild pain or fever Last Admin: 10/14/20 18:42 Dose: 600 mg Documented by: Chiki Weeks (Rust) 1 pad TOP ASDIRECTED PRN PRN Reason: Perineal Comfort Measure Last Admin: 10/15/20 04:05 Dose: 1 tub Documented by: Discontinued Medications Carboprost Tromethamine (Hemabate Ds) 250 mcg IM ONETIME ONE Stop: 10/13/20 21:02 Last Admin: 10/13/20 20:41 Dose: 250 mcg Documented by: Cefazolin Sodium/Dextrose (Ancef) Confirm Administered Dose 2 gm IV .STK-MED ONE Stop: 10/13/20 20:54 Last Admin: 10/14/20 04:17 Dose: Not Given Documented by: Lactated Ringer's (Ringers, Lactated) 1,000 mls @ 100 mls/hr IV ASDIRECTED JOANIE Last Admin: 10/14/20 04:14 Dose: 500 mls/hr Documented by: Oxytocin/Lactated Ringer's (Pitocin In Lr 10 Units/1,000 Ml) 10 unit in 1,000 mls @ 500 mls/hr IV .CONTINUOUS JOANIE Oxytocin/Lactated Ringer's (Pitocin In Lr 10 Units/1,000 Ml) 10 unit in 1,000 mls @ 12 mls/hr IV TITRATE JOANIE; Protocol Last Titration: 10/13/20 20:45 Dose: 166.5 munits/min, 999 mls/hr Documented by: Cefazolin Sodium/Dextrose 2 gm (/ Premix) 50 mls @ 100 mls/hr IV ONETIME ONE Stop: 10/13/20 21:30 Last Admin: 10/13/20 21:00 Dose: 100 mls/hr Documented by: Lidocaine HCl (Xylocaine 1%) Confirm Administered Dose 50 ml .ROUTE .STK-MED ONE Stop: 10/13/20 19:17 Last Admin: 10/14/20 04:17 Dose: Not Given Documented by: Methylergonovine Maleate (Methergine) 0.2 mg IM NOW STA Stop: 10/13/20 21:02 Last Admin: 10/13/20 20:50 Dose: 0.2 mg Documented by: Misoprostol (Cytotec) Confirm Administered Dose 600 mcg .ROUTE .STK-MED ONE Stop: 10/13/20 20:33 Last Admin: 10/14/20 04:17 Dose: Not Given Documented by: Misoprostol (Cytotec) 600 mcg PO NOW STA Stop: 10/13/20 21:02 Last Admin: 10/13/20 20:35 Dose: 600 mcg Documented by: Nalbuphine HCl (Nubain) 10 mg IVPUSH Q2H PRN PRN Reason: Pain Last Admin: 10/13/20 15:17 Dose: 10 mg Documented by: Ondansetron HCl (Zofran) 4 mg IVPUSH Q4H PRN PRN Reason: Nausea/Vomiting Last Admin: 10/13/20 21:20 Dose: 4 mg Documented by: Sodium Chloride (Saline Flush) 10 ml FLUSH ASDIRECTED PRN PRN Reason: Keep Vein Open Tranexamic Acid (Cyklokapron) Confirm Administered Dose 1,000 mg .ROUTE .STK-MED ONE Stop: 10/13/20 20:42 Last Admin: 10/14/20 04:17 Dose: Not Given Documented by: Tranexamic Acid (Cyklokapron) 1,000 mg IVPUSH ONETIME ONE Stop: 10/13/20 21:02 Last Admin: 10/13/20 20:45 Dose: 1,000 mg Documented by:
[2020-10-15] MEDS ORDERED: Prenatal Multivitamin with Calcium/Folic Acid/Iron Tab PO SCH (10:45)
[2020-10-15] MEDS: Ferrous Sulfate 324 MG Tab.EC PO SCH ×2 (10:53→17:54)
[2020-10-15] MEDS: Ibuprofen 600 MG Tab PO PRN (10:53)
[2020-10-15] MEDS: Docusate Sodium 100 MG Cap PO PRN (10:53)
== END 2020-10-15 17:00 | disposition home or self-care (01) | DRG 560 ==
LOC: JD.OBCHECK 21:39 → JD.OB 21:39 → JD.OBCHECK 10-13 00:30 → JD.OB 10-13 00:31 → OBSVTOIN 10-13 20:24 → JD.OB 10-13 20:35
PROVIDERS: ADMIT Obstetrics & Gynecology; ATTEND Obstetrics & Gynecology
PROC: 10E0XZZ Delivery of Products of Conception, External Approach (ICD-10-PCS; principal; 2020-10-13)
PROC: 10907ZC Drainage of Amniotic Fluid, Therapeutic from Products of Conception, Via Natural or Artificial Opening (ICD-10-PCS; 2020-10-13)
PROC: 3E033VJ Introduction of Other Hormone into Peripheral Vein, Percutaneous Approach (ICD-10-PCS; 2020-10-13)
PROC: 3E0P7VZ Introduction of Hormone into Female Reproductive, Via Natural or Artificial Opening (ICD-10-PCS; 2020-10-13)
PROC: 10H07YZ Insertion of Other Device into Products of Conception, Via Natural or Artificial Opening (ICD-10-PCS; 2020-10-13)
DX: O14.04 Mild to moderate pre-eclampsia, complicating childbirth (principal); Z3A.37 37 weeks gestation of pregnancy; Z37.0 Single live birth; O72.1 Other immediate postpartum hemorrhage; O90.81 Anemia of the puerperium; O72.0 Third-stage hemorrhage; Z20.828 Contact with and (suspected) exposure to other viral communicable diseases; O99.214 Obesity complicating childbirth; E66.9 Obesity, unspecified; Z91.030 Bee allergy status; Z88.1 Allergy status to other antibiotic agents; D62 Acute posthemorrhagic anemia
CPT/HCPCS: 36415; 59025; 59409; 82565; 82570; 84112; 84156; 84450; 84460; 85025; 85027; 86592; A9270-GY; J0690; J2210; J2300; J2405; J2590; J7120; U0002

== ENCOUNTER 2021-04-03 23:31 | Emergency (ER) | payer BC ==
--- NOTE | 2021-04-04 00:13 | EDM.PDOC ---
ED HPI GENERAL MEDICAL PROBLEM - General Chief Complaint: PROCESSING ARCHIVIST Problem Stated Complaint: 3WKS /BLEEDING HEAVY Time Seen by Provider: 04/03/21 23:42 Source of Information: Reports: Patient History Limitations: Reports: No Limitations - History of Present Illness INITIAL COMMENTS - FREE TEXT/NARRATIVE: Ms. Gibson is a very pleasant 21-year-old woman who now presents to the ED due to concerns about her early . She states that she had a positive home test on 03/21/2021, with her LMP 02/22/2021, giving her a gestational age of 5 weeks 5 days, MAGGI 11/29/2021. She is G2, P0101. She states that at the same time, she developed abdominal pain, headache, cough, and chills. She went to [place] that same day, and was diagnosed with COVID- 19. She has been quarantining since. She now presents the ED stating that she has had pelvic cramps for about 1 week, along with chills and a headache. She began spotting yesterday, then passed a small quantity of some clots tonight. She states that the quantity is less than 1 pad. Here in the ED, the patient was initially found to be tachycardic at 113 bpm, otherwise, she is hemodynamic stable, afebrile, saturating 96% on room air. The patient does not have a PCP or PROCESSING ARCHIVIST. Abdomen Pain Score (Numeric/FACES): 8 - Related Data Allergies Allergy/AdvReac Type Severity Reaction Status Date / Time azithromycin [From Zithromax] Allergy Severe Anaphylactic Verified 10/12/20 21:50 Shock bee pollen Allergy Severe Difficulty Verified 10/12/20 21:50 Breathing Home Meds: Home Meds Vits #93/Iron Fum/FA [ Formula Tablet] 1 each PO DAILY 10/12/20 [History] Acetaminophen [Tylenol] 650 mg PO Q6H PRN tablet 10/15/20 [Rx] Past Medical History : 2 Para: 1 Endocrine/Metabolic History: Reports: Obesity/BMI 30+ Social & Family History - Family History Family Medical History: No Pertinent Family History - Tobacco Use Tobacco Use Status *Q: Never Tobacco User - Caffeine Use Caffeine Use: Reports: None - Alcohol Use Alcohol Use History: No - Recreational Drug Use Recreational Drug Use: No - Living Situation & Occupation Living situation: Reports: Single, with Family (Daughter) Occupation: Unemployed ED ROS GENERAL - Review of Systems Review Of Systems: Comprehensive ROS is negative, except as noted in HPI. ED EXAM - Physical Exam Exam: See Below Exam Limited By: No Limitations General Appearance: Alert, WD/WN, No Apparent Distress Eye Exam: Bilateral Eye: EOMI, Normal Inspection Ears: Normal External Exam, Hearing Grossly Normal Nose: Normal Inspection Throat/Mouth: Normal Inspection, Normal Lips, Normal Voice, No Airway Compromise Head: Atraumatic, Normocephalic Neck: Normal Inspection, Full Range of Motion Respiratory/Chest: No Respiratory Distress, Lungs Clear, Normal Breath Sounds, No Accessory Muscle Use Cardiovascular: Normal Peripheral Pulses, Regular Rate, Rhythm, No Gallop, No JVD, No Murmur, No Rub GI/Abdominal Exam: Normal Bowel Sounds, Soft, Non-Tender (including suprapubically), No Organomegaly, No Distention, No Abnormal Bruit, No Mass (Female) Exam: Normal External Exam, Normal Speculum Exam, Other (Small amount of bloody mucus at the introitus, but no new or old blood in the vagina. The parous cervix is closed, with a visible mucous plug.) Back Exam: Normal Inspection, Full Range of Motion, NT Extremities: Normal Inspection, Normal Range of Motion, Normal Capillary Refill Neurological: Alert, Oriented, Normal Cognition, No Motor/Sensory Deficits Psychiatric: Normal Affect Skin Exam: Warm, Dry, Intact, Normal Color, No Rash Course - Vital Signs Last Recorded V/S: Last Vital Signs Temp 36.4 C 04/03/21 23:43 Pulse 113 H 04/03/21 23:43 Resp 15 04/03/21 23:43 BP 118/75 04/03/21 23:43 Pulse Ox 96 04/03/21 23:43 - Orders/Labs/Meds Orders: Active Orders 24 hr Category Date Time Status OB Transvaginal [US] Stat Exams 04/04/21 00:03 Taken PATIENT RETYPE [BBK] Routine Lab 04/04/21 01:26 Ordered Labs: Laboratory Tests 04/04/21 04/04/21 04/04/21 Range/Units 00:26 00:26 00:26 WBC 6.32 (3.98-10.04) K/mm3 RBC 5.48 H (3.98-5.22) M/mm3 Hgb 12.2 D (11.2-15.7) gm/dl Hct 39.8 (34.1-44.9) % MCV 72.6 L D (79.4-94.8) fl MCH 22.3 L (25.6-32.2) pg MCHC 30.7 L (32.2-35.5) g/dl RDW Std Deviation 49.6 H (36.4-46.3) fL Plt Count 237 (182-369) K/mm3 MPV 11.0 (9.4-12.3) fl Neut % (Auto) 68.3 (34.0-71.1) % Lymph % (Auto) 24.1 (19.3-51.7) % [place] % (Auto) 6.5 (4.7-12.5) % Eos % (Auto) 0.2 L (0.7-5.8) Baso % (Auto) 0.3 (0.1-1.2) % Neut # (Auto) 4.32 (1.56-6.13) K/mm3 Lymph # (Auto) 1.52 (1.18-3.74) K/mm3 [place] # (Auto) 0.41 H (0.24-0.36) K/mm3 Eos # (Auto) 0.01 L (0.04-0.36) K/mm3 Baso # (Auto) 0.02 (0.01-0.08) K/mm3 Manual Slide Review Abnormal smear HCG, Quant 8411.0 mIU/mL Urine Color (Yellow) Urine Appearance (Clear) Urine pH (5.0-8.0) Ur Specific [place] (1.005-1.030) Urine Protein (Negative) Urine Glucose (UA) (Negative) Urine Ketones (Negative) Urine Occult Blood (Negative) Urine Nitrite (Negative) Urine Bilirubin (Negative) Urine Urobilinogen (0.2-1.0) Ur Leukocyte Esterase (Negative) Urine RBC (0-5) /hpf Urine WBC (0-5) /hpf Ur Squamous Epith Cells (0-5) /hpf Urine Bacteria (FEW) /hpf Urine Mucus (FEW) /hpf Blood Type A POSITIVE 04/04/21 Range/Units 00:32 WBC (3.98-10.04) K/mm3 RBC (3.98-5.22) M/mm3 Hgb (11.2-15.7) gm/dl Hct (34.1-44.9) % MCV (79.4-94.8) fl MCH (25.6-32.2) pg MCHC (32.2-35.5) g/dl RDW Std Deviation (36.4-46.3) fL Plt Count (182-369) K/mm3 MPV (9.4-12.3) fl Neut % (Auto) (34.0-71.1) % Lymph % (Auto) (19.3-51.7) % [place] % (Auto) (4.7-12.5) % Eos % (Auto) (0.7-5.8) Baso % (Auto) (0.1-1.2) % Neut # (Auto) (1.56-6.13) K/mm3 Lymph # (Auto) (1.18-3.74) K/mm3 [place] # (Auto) (0.24-0.36) K/mm3 Eos # (Auto) (0.04-0.36) K/mm3 Baso # (Auto) (0.01-0.08) K/mm3 Manual Slide Review HCG, Quant mIU/mL Urine Color Yellow (Yellow) Urine Appearance Clear (Clear) Urine pH 6.0 (5.0-8.0) Ur Specific [place] 1.025 (1.005-1.030) Urine Protein 2+ H (Negative) Urine Glucose (UA) Negative (Negative) Urine Ketones Negative (Negative) Urine Occult Blood 2+ H (Negative) Urine Nitrite Negative (Negative) Urine Bilirubin Negative (Negative) Urine Urobilinogen 0.2 (0.2-1.0) Ur Leukocyte Esterase 1+ H (Negative) Urine RBC 0-5 (0-5) /hpf Urine WBC 5-10 H (0-5) /hpf Ur Squamous Epith Cells 5-10 H (0-5) /hpf Urine Bacteria Moderate H (FEW) /hpf Urine Mucus Rare (FEW) /hpf Blood Type - Re-Assessments/Exams Free Text/Narrative Re-Assessment/Exam: 04/04/21 00:05 As above, the patient discovered that she was , but was also diagnosed with COVID-19 2 weeks ago. With an LMP of 02/22/2021, she is 5 weeks 5 days gest ation. She has had pelvic cramps for about a week, developed spotting yesterday, then started passing a small quantity of clots tonight. Her physical exam is completely unremarkable. On pelvic examination, there was a slight amount of bloody mucus at the introitus, however, there was no new or old blood in the vagina, and her cervix was closed with a visible mucous plug. I have ordered a CBC, quantitative hCG, ABO/Rh, urinalysis, and a transvaginal ultrasound to evaluate for an ectopic . 04/04/21 02:03 The patient's CBC is unremarkable. Her quantitative hCG is 8411. Her blood type is A-Positive. Her urinalysis is remarkable for 2+ occult blood with 0-5 RBCs, 1+ leukocyte esterase with 5-10 WBCs, nitrate negative with moderate bacteria, and 5-10 squamous epithelial cells. Transvaginal ultrasound is read by [facility] as: 1. Small intrauterine gestational sac containing yolk sac with embryo not yet identified. Follow-up is needed to establish viability. 2. Small left ovarian lesion which is consistent with corpus luteum. 3. Minimal simple appearing free pelvic fluid which may be physiologic. 04/04/21 02:06 Test results discussed with the patient. As above, the ultrasound confirms an intrauterine , and effectively excludes an ectopic , however, her is so early that viability cannot yet be determined. I will discharge the patient home with a referral to Dr. Mazariegos, to establish an PROCESSING ARCHIVIST. Departure - Departure Time of Disposition: 02:07 Disposition: Home, Self-Care 01 Condition: Good Clinical Impression: - Discharge Information *PRESCRIPTION DRUG MONITORING PROGRAM REVIEWED*: Not Applicable *COPY OF PRESCRIPTION DRUG MONITORING REPORT IN PATIENT LENNIE: Not Applicable Referrals: PCP,None [Primary Care Provider] - Mouna Mazariegos MD [Physician] - Forms: ED Department Discharge Additional Instructions: You were seen in the emergency room after developing spotting yesterday, and passing a small quantity of clots today, in the setting of early . Work-up in the ER included several blood tests, urinalysis, and an obstetric ultrasound. Your ultrasound confirmed an intrauterine , however, the is still early, that viability cannot be determined. The remainder of your work-up was unremarkable. You do not have a urinary tract infection. Your blood type is A-Positive. You may take [id number] Tylenol as needed for discomfort. Do not take ibuprofen or naproxen. You may follow-up with the Tile Inspector Dr. Mouna Mazariegos, to establish an PROCESSING ARCHIVIST. If any other problems, please do not hesitate to return to the ER. Sepsis Event Note (ED) - Evaluation Sepsis Screening Result: No Definite Risk - Focused Exam Vital Signs: Vital Signs Temp Pulse Resp BP Pulse Ox 04/03/21 23:43 36.4 C 113 H 15 118/75 96 - My Orders Last 24 Hours: My Active Orders 04/04/21 00:03 OB Transvaginal [US] Stat 04/04/21 01:26 PATIENT RETYPE [BBK] Routine - Assessment/Plan Last 24 Hours: My Active Orders 04/04/21 00:03 OB Transvaginal [US] Stat 04/04/21 01:26 PATIENT RETYPE [BBK] Routine
--- NOTE | 2021-04-04 08:02 | US ---
First trimester obstetrical ultrasound: Multiple real-time images were obtained transvaginally. Comparison: No prior obstetrical imaging for current is available. Dates: Current ultrasound: MAGGI 11/30/20, gestational age 5 weeks 5 days Single intrauterine gestational sac is seen. Decidual reaction is seen around this area. No yolk sac or pole is seen. Small amount of fluid is seen within the cul-de-sac. Right ovary is not visualized. Left ovary shows a small collapsing cyst. Left ovary is otherwise unremarkable. Measurements: Gestational sac: 0.92 cm - 5 weeks 5 days, no pole or yolk sac is seen. Impression: 1. Single intrauterine gestational sac. No yolk sac or pole is seen. Recommend repeat study in 10-14 days to confirm normal developing . 2. Other findings believed to be incidental as noted above. Diagnostic code #1 I agree with preliminary report from [facility] finalized on 04/04/21, 2:40 AM CDT, code 1
== END 2021-04-04 02:17 | disposition home or self-care (01) ==
LOC: JD.ED 23:31
DX: O99.891 Other specified diseases and conditions complicating pregnancy (principal); R10.9 Unspecified abdominal pain; R51.9 Headache, unspecified; R05 Cough; R68.83 Chills (without fever); O99.211 Obesity complicating pregnancy, first trimester; E66.9 Obesity, unspecified; Z86.16 Personal history of COVID-19; Z88.1 Allergy status to other antibiotic agents; Z91.030 Bee allergy status; Z3A.01 Less than 8 weeks gestation of pregnancy
CPT/HCPCS: 36415; 76817; 76817-26; 81001; 84702; 85025; 86900; 86901; 99283; 99285-25

== ENCOUNTER → 2021-05-18 | Day surgery (SDC) | payer BC ==
[~2021-05-18] MED LIST: Doxycycline 100 MG Cap PO ONE; Ketamine 500 mg/10 ML MDV ONE; Ketorolac 30 MG/ML SDV ONE; Lactated Ringers 1,000 ML IV SCH; Lidocaine 1% 30 ML SDV ONE; Lidocaine 1% 4 ML ONE; Lidocaine 1%/Sod Bicarbonate in NS 8.4% 1 ML Syringe IDERM PRN; Midazolam 1 MG/ML 2 ML SDV ONE; Ondansetron 4 MG/2 ML SDV ONE; Propofol 200 MG/20 ML SDV ONE; Sodium Chloride 0.9% 10 ML Syringe FLUSH PRN; fentaNYL 100 MCG/2 ML SDV ONE
--- NOTE | 2021-05-18 08:16 | PCM.OPNOTE ---
- General Post-Op/Procedure Note Date of Surgery/Procedure: 05/18/21 Operative Procedure(s): Suction D&C Findings: SVE with a mobile/mid-position uterus. Pre Op Diagnosis: Missed Post-Op Diagnosis: Same Anesthesia Technique: MAC Primary Surgeon: Mouna Mazariegos Anesthesia Provider: Abdirizak Diez Pathology: Products of conception sent to pathology Fluid Replacement, Intraop: 800 Output, Urine Amount: 0 (Voided prior to case) EBL in mLs: 20 Complications: None Condition: Good Free Text/Narrative:: The patient was brought to the OR where anesthesia was induced without difficulty. She was placed in the dorsal lithotomy position and prepped and draped in the usual sterile fashion. A bi-valve speculum was placed in the vagina and the cervix was visualized. A single tooth tenaculum was placed on the anterior lip of the cervix. Approximately 10 cc of 1% lidocaine were injected in a paracervical fashion for local anesthesia. Next the cervix was sequentially dilated to a #10 dilator. A size 9-mm cannula was then inserted into the uterus up to the level of the fundus. Next an electric vacuum aspiration was performed by slowly rotating the cannula and performing a gentle in and out motion. Return of tissues was noted. This procedure was repeated until no further return of tissue noted. A gritty texture was also noted at the end of the procedure. There was minimal bleeding at the end of the procedure. The tenaculum was removed from the cervix and the site appeared hemostatic. The patient tolerated the procedure well. Plan: Patient blood type is Rh positive, no need fo rRhogam Patient received doxycycline pre procedure and was given Rx for 200 mg of doxycycline to be taken post procedure. Desires Depo-provera for contraception. Will be given at [facility] later today Return in 3 weeks for post op check.
--- NOTE | 2021-05-18 09:36 | PCM.PREANE ---
Preanesthetic Assessment - Procedure Proposed Procedure: Dilation and curettage - Anesthesia/Transfusion/Family Hx Anesthesia History: No Prior Anesthesia Family History of Anesthesia Reaction: No Transfusion History: No Prior Transfusion(s) Intubation History: Unknown - Review of Systems General: No Symptoms Pulmonary: No Symptoms Cardiovascular: Lightheadedness (When she stands quickly) Gastrointestinal: Abdominal Pain (Cramping 4/10) Neurological: No Symptoms Other: Reports: None, Easy Bruising - Physical Assessment NPO Status Date: 05/17/21 NPO Status Time: 23:00 Vital Signs: BP 122/76 HR 90 RR 16 97.2 100% Height: 1.65 m Weight: 110.5 kg ASA Class: 2 Mental Status: Alert & Oriented x3 Airway Class: Mallampati = 2 Dentition: Reports: Normal Dentition Thyro-Mental Finger Breadths: 3 Mouth Opening Finger Breadths: 3 ROM/Head Extension: Full Lungs: Clear to Auscultation, Normal Respiratory Effort Cardiovascular: Regular Rate, Regular Rhythm - Lab Values: Dr. Mazariegos declined labs prior to procedure - Allergies Allergies/Adverse Reactions: Allergies Allergy/AdvReac Type Severity Reaction Status Date / Time azithromycin [From Zithromax] Allergy Severe Anaphylactic Verified 10/12/20 21:50 Shock bee pollen Allergy Severe Difficulty Verified 10/12/20 21:50 Breathing - Blood Blood Available: No Product(s) Available: None - Anesthesia Plan Pre-Op Medication Ordered: None - Acknowledgements Anesthesia Type Planned: General Anesthesia, MAC Pt an Appropriate Candidate for the Planned Anesthesia: Yes Alternatives and Risks of Anesthesia Discussed w Pt/Guardian: Yes Pt/Guardian Understands and Agrees with Anesthesia Plan: Yes PreAnesthesia Questionnaire - Past Health History Medical/Surgical History: Denies Medical/Surgical History HEENT History: Reports: Other (See Below) Other HEENT History: Pt reports having frequent ear infections. 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 Psychiatric History: Reports: Depression Endocrine/Metabolic History: Reports: Obesity/BMI 30+ - Infectious Disease History Other Infectious Disease History: Chlamydia - SUBSTANCE USE Tobacco Use Status *Q: Never Tobacco User Tobacco Use Within Last Twelve Months: No Second Hand Smoke Exposure: No Days Per Week of Alcohol Use: 0 Number of Drinks Per Day: 0 Total Drinks Per Week: 0 Recreational Drug Use History: No - HOME MEDS Home Medications: Home Meds Vits #93/Iron Fum/FA [ Formula Tablet] 1 each PO DAILY 10/12/20 [History] Acetaminophen [Tylenol] 650 mg PO Q6H PRN tablet 10/15/20 [Rx] - CURRENT (IN HOUSE) MEDS Current Meds: Current Medications Discontinued Medications Doxycycline Hyclate (Doxycycline 100 Mg Cap) 100 mg PO ONETIME ONE Stop: 05/18/21 08:41 Last Admin: 05/18/21 08:50 Dose: 100 mg Documented by: Fentanyl (Fentanyl 100 Mcg/2 Ml Sdv) Confirm Administered Dose 100 mcg .ROUTE .STK-MED ONE Stop: 05/18/21 08:28 Lidocaine HCl (Xylocaine-Mpf 1%) Confirm Administered Dose 4 mls @ as directed .ROUTE .STK-MED ONE Stop: 05/18/21 08:28 Ketamine HCl (Ketamine 500 Mg/10 Ml Mdv) Confirm Administered Dose 500 mg .ROUTE .STK-MED ONE Stop: 05/18/21 08:29 Midazolam HCl (Midazolam 1 Mg/Ml 2 Ml Sdv) Confirm Administered Dose 2 mg .ROUTE .STK-MED ONE Stop: 05/18/21 08:28 Propofol (Propofol 200 Mg/20 Ml Sdv) Confirm Administered Dose 200 mg .ROUTE .STK-MED ONE Stop: 05/18/21 08:28
--- NOTE | 2021-05-18 10:40 | PCM48HPAN ---
Post Anesthesia Note - EVALUATION WITHIN 48HRS OF ANESTHETIC Vital Signs in Normal Range: Yes Patient Participated in Evaluation: Yes Respiratory Function Stable: Yes Airway Patent: Yes Cardiovascular Function Stable: Yes Hydration Status Stable: Yes Pain Control Satisfactory: Yes (deneis) Nausea and Vomiting Control Satisfactory: Yes Mental Status Recovered: Yes (crying on and off- didn't know where she was) Vital Signs: Last Vital Signs Temp 97.2 F 05/18/21 07:53 Pulse 90 05/18/21 07:53 Resp 16 05/18/21 07:53 BP 122/76 05/18/21 07:53 Pulse Ox 100 05/18/21 07:53 1032 99/76 101 20 97.6 100%
== END | disposition home or self-care (01) ==
LOC: JD.SDS 07:36
PROVIDERS: ATTEND Obstetrics & Gynecology
DX: O02.1 Missed abortion (principal); E66.9 Obesity, unspecified; Z79.899 Other long term (current) drug therapy; Z88.1 Allergy status to other antibiotic agents; Z91.030 Bee allergy status
CPT/HCPCS: 59821; A9270; J1885; J2250; J2405; J2704; J3010; J7120; 01965

== ENCOUNTER 2023-05-10 23:20 | Inpatient (IN) | payer BC ==
[2023-05-11] MEDS ORDERED: Calcium Carbonate 500 MG Tab.Chew PO PRN (01:22)
[2023-05-11] MEDS ORDERED: Ondansetron 4 MG/2 ML SDV IVPUSH PRN (01:22)
[2023-05-11] MEDS ORDERED: Lidocaine 1% 50 ML MDV INJECT ONE (01:22)
[2023-05-11] MEDS ORDERED: Sodium Chloride 0.9% 10 ML Syringe FLUSH PRN (01:22)
[2023-05-11] MEDS ORDERED: Oxytocin/Lactated Ringers 10 UNIT/1,000 ML BAG IV SCH ×2 (01:30)
[2023-05-11 01:43] LABS: HEMATOCRIT 32.2 % (34.1-44.9); MEAN CORPUSCULAR HEMOGLOBIN 23.7 pg (25.6-32.2); MEAN CORPUSCULAR HGB CONC 31.1 g/dl (32.2-35.5); MEAN CORPUSCULAR VOLUME 76.3 fl (79.4-94.8); MEAN PLATELET VOLUME 11.5 fl (9.4-12.3); PLATELET COUNT,PLT 310 K/mm3 (182-369); RED BLOOD CELL COUNT 4.22 M/mm3 (3.98-5.22); WHITE BLOOD CELL COUNT,WBC 13.61 K/mm3 (3.98-10.04)
[2023-05-11] MEDS: Lactated Ringers 1,000 ML IV SCH ×2 (02:00→10:49)
[2023-05-11 02:17] LABS: HEMOGLOBIN A1C 6.4 %
[2023-05-11] MEDS ORDERED: ePHEDrine 50 MG/ML SDV IVPUSH PRN (04:58)
[2023-05-11] MEDS ORDERED: Bupivacaine/fentaNYL/NS 100 ML Bag EPIDUR PRN (04:58)
[2023-05-11] MEDS ORDERED: diphenhydrAMINE 50 MG/ML SDV IVPUSH PRN (04:58)
[2023-05-11] MEDS ORDERED: fentaNYL 100 MCG/2 ML SDV EPIDUR PRN (04:58)
[2023-05-11] MEDS ORDERED: Sodium Chloride 0.9% 10 ML Syringe FLUSH SCH (09:00)
[2023-05-11] MEDS: Nalbuphine 10 MG/0.5 ML Syringe IVPUSH PRN ×2 (09:06→10:49)
[2023-05-11] MEDS ORDERED: fentaNYL 100 MCG/2 ML SDV ONE (15:35)
[2023-05-11] MEDS ORDERED: Tranexamic Acid 1,000 MG/10 ML Vial ONE (15:35)
[2023-05-11] MEDS ORDERED: LACTATED RINGERS IV ONE (16:00)
[2023-05-11] MEDS ORDERED: OXYTOCIN IV ONE (16:00)
[2023-05-11] MEDS ORDERED: Oxytocin 10 Units/1 ML SDV ONE (16:01)
[2023-05-11] MEDS ORDERED: Sodium Chloride 0.9% 250 ML ONE (16:10)
[2023-05-11] MEDS ORDERED: Misoprostol 200 MCG Tab PO PRN (16:28)
[2023-05-11] MEDS ORDERED: Carboprost Tromethamine 250 MCG/1 ML Amp IM ONE (16:28)
[2023-05-11] MEDS ORDERED: Benzocaine/Menthol 20%-0.5% Spray 78 GM Cannister TOP PRN (16:28)
[2023-05-11] MEDS ORDERED: Witch Hazel Medicated Pads 40/Jar TOP PRN (16:28)
[2023-05-11 16:37] LABS: HEMATOCRIT 30.1 % (34.1-44.9); HEMOGLOBIN 9.3 gm/dl (11.2-15.7); MEAN CORPUSCULAR HEMOGLOBIN 23.7 pg (25.6-32.2); MEAN CORPUSCULAR HGB CONC 30.9 g/dl (32.2-35.5); MEAN CORPUSCULAR VOLUME 76.6 fl (79.4-94.8); MEAN PLATELET VOLUME 11.8 fl (9.4-12.3); PLATELET COUNT,PLT 305 K/mm3 (182-369); RED BLOOD CELL COUNT 3.93 M/mm3 (3.98-5.22); WHITE BLOOD CELL COUNT,WBC 16.67 K/mm3 (3.98-10.04)
[2023-05-11 16:45] LABS: PROTHROMBIN TIME 9.8 SECONDS (9.7-12.0)
[2023-05-11 16:46] LABS: PTT,PARTIAL THROMBOPLSTIN TIME 23.8 SECONDS (21.7-31.4)
[2023-05-11 16:48] LABS: INR < 0.93
[2023-05-11 16:49] LABS: A/G RATIO 0.4 (1-2); ANION GAP 16.1 (5-15); BILIRUBIN TOTAL 0.2 mg/dL (0.2-1.0); BUN/CREATININE RATIO 11.3 (14-18); CALCIUM 8.9 mg/dL (8.5-10.1); CREATININE 0.8 mg/dL (0.55-1.02); EST CRCL DRUG DOSING (CG) 100.63 mL/min; FIBRINOGEN 740 mg/dL (187-446); POTASSIUM,K 4.1 mEq/L (3.5-5.1); PROTEIN TOTAL,TP 6.8 g/dl (6.4-8.2)
[2023-05-11] MEDS ORDERED: Atropine/Diphenoxylate 0.025-2.5 MG Tab PO ONE (17:51)
[2023-05-11] MEDS ORDERED: Sodium Chloride 0.9% 1,000 ML ONE (20:11)
[2023-05-11] MEDS: Ibuprofen 600 MG Tab PO PRN (20:47)
[2023-05-11] MEDS: Acetaminophen 325 MG Tab PO PRN (20:48)
[2023-05-11] MEDS ORDERED: Magnesium Hydroxide 400 MG/5 ML Susp 30 ML Cup PO ONE (23:26)
[2023-05-12] MEDS ORDERED: Magnesium Hydroxide 400 MG/5 ML Susp 30 ML Cup PO ONE (01:45)
[2023-05-12 02:08] LABS: HEMATOCRIT 27.5 % (34.1-44.9); HEMOGLOBIN 8.8 gm/dl (11.2-15.7); MEAN CORPUSCULAR HEMOGLOBIN 24.6 pg (25.6-32.2); MEAN CORPUSCULAR VOLUME 76.8 fl (79.4-94.8); MEAN PLATELET VOLUME 11.8 fl (9.4-12.3); PLATELET COUNT,PLT 248 K/mm3 (182-369); RED BLOOD CELL COUNT 3.58 M/mm3 (3.98-5.22); WHITE BLOOD CELL COUNT,WBC 18.91 K/mm3 (3.98-10.04)
[2023-05-12] MEDS: Ibuprofen 600 MG Tab PO PRN (03:25)
[2023-05-12] MEDS: Acetaminophen 325 MG Tab PO PRN (03:25)
[2023-05-12 06:21] LABS: BASOPHILS ABSOLUTE AUTO 0.03 K/mm3 (0.01-0.08); BASOPHILS PERCENT AUTO 0.2 % (0.1-1.2); EOSINOPHILS ABSOLUTE AUTO 0.13 K/mm3 (0.04-0.36); EOSINOPHILS PERCENT AUTO 0.9 (0.7-5.8); HEMATOCRIT 25.3 % (34.1-44.9); HEMOGLOBIN 8.1 gm/dl (11.2-15.7); IMMATURE GRAN ABSOLUTE AUTO 0.07 K/mm3 (0.00-0.10); IMMATURE GRAN PERCENT AUTO 0.5 % (<=1.0); LYMPHOCYTES ABSOLUTE AUTO 2.91 K/mm3 (1.18-3.74); LYMPHOCYTES PERCENT AUTO 20.4 % (19.3-51.7); MEAN CORPUSCULAR HEMOGLOBIN 24.8 pg (25.6-32.2); MEAN CORPUSCULAR VOLUME 77.4 fl (79.4-94.8); MEAN PLATELET VOLUME 11.8 fl (9.4-12.3); MONOCYTES ABSOLUTE AUTO 1.06 K/mm3 (0.24-0.36); MONOCYTES PERCENT AUTO 7.4 % (4.7-12.5); NEUTROPHILS ABSOLUTE AUTO 10.04 K/mm3 (1.56-6.13); NEUTROPHILS PERCENT AUTO 70.6 % (34.0-71.1); PLATELET COUNT,PLT 222 K/mm3 (182-369); RED BLOOD CELL COUNT 3.27 M/mm3 (3.98-5.22); WHITE BLOOD CELL COUNT,WBC 14.24 K/mm3 (3.98-10.04)
[2023-05-13] MEDS: Ibuprofen 600 MG Tab PO PRN (04:02)
[2023-05-13 06:19] LABS: BASOPHILS ABSOLUTE AUTO 0.02 K/mm3 (0.01-0.08); BASOPHILS PERCENT AUTO 0.2 % (0.1-1.2); EOSINOPHILS ABSOLUTE AUTO 0.18 K/mm3 (0.04-0.36); EOSINOPHILS PERCENT AUTO 1.5 (0.7-5.8); HEMATOCRIT 26.6 % (34.1-44.9); HEMOGLOBIN 8.1 gm/dl (11.2-15.7); IMMATURE GRAN ABSOLUTE AUTO 0.14 K/mm3 (0.00-0.10); IMMATURE GRAN PERCENT AUTO 1.2 % (<=1.0); LYMPHOCYTES PERCENT AUTO 21.8 % (19.3-51.7); MEAN CORPUSCULAR HEMOGLOBIN 23.8 pg (25.6-32.2); MEAN CORPUSCULAR HGB CONC 30.5 g/dl (32.2-35.5); MEAN CORPUSCULAR VOLUME 78.2 fl (79.4-94.8); MEAN PLATELET VOLUME 11.7 fl (9.4-12.3); MONOCYTES ABSOLUTE AUTO 0.78 K/mm3 (0.24-0.36); MONOCYTES PERCENT AUTO 6.6 % (4.7-12.5); NEUTROPHILS ABSOLUTE AUTO 8.18 K/mm3 (1.56-6.13); NEUTROPHILS PERCENT AUTO 68.7 % (34.0-71.1); PLATELET COUNT,PLT 246 K/mm3 (182-369)
== END 2023-05-13 11:53 | disposition home or self-care (01) | DRG 542 ==
LOC: JD.OBCHECK 23:20 → JD.OB 23:37 → JD.OBCHECK 05-11 00:50 → JD.OB 05-11 00:50 → OBSVTOIN 05-11 15:30 → JD.OB 05-11 15:31
PROVIDERS: ADMIT Obstetrics & Gynecology; ATTEND Obstetrics & Gynecology
PROC: 10E0XZZ Delivery of Products of Conception, External Approach (ICD-10-PCS; principal; 2023-05-11)
PROC: 30233N1 Transfusion of Nonautologous Red Blood Cells into Peripheral Vein, Percutaneous Approach (ICD-10-PCS; 2023-05-11)
PROC: 0W3R7ZZ Control Bleeding in Genitourinary Tract, Via Natural or Artificial Opening (ICD-10-PCS; 2023-05-11)
DX: O42.12 Full-term premature rupture of membranes, onset of labor more than 24 hours following rupture (principal); O99.214 Obesity complicating childbirth; O72.1 Other immediate postpartum hemorrhage; O99.02 Anemia complicating childbirth; O99.344 Other mental disorders complicating childbirth; F32.A Depression, unspecified; F41.9 Anxiety disorder, unspecified; Z37.0 Single live birth; Z88.1 Allergy status to other antibiotic agents; Z91.030 Bee allergy status; Z3A.38 38 weeks gestation of pregnancy; Z98.890 Other specified postprocedural states; Z79.82 Long term (current) use of aspirin; Z79.899 Other long term (current) drug therapy
CPT/HCPCS: 36415; 36430; 59025; 59409; 80053; 83036; 84112; 85025; 85027; 85384; 85610; 85730; 86592; 86850; 86900; 86901; 86922; A9270-GY; J0690; J2300; J2590; J3010; J3490; J7050; J7120; P9016

== ENCOUNTER 2025-09-24 18:05 | Emergency (ER) | payer SELFPAY | END 2025-09-24 18:54 | disposition left against medical advice (07) | LOC: JD.ED 18:05 | DX: M54.42 Lumbago with sciatica, left side (principal); M79.605 Pain in left leg; E66.9 Obesity, unspecified; Z68.42 Body mass index [BMI] 45.0-49.9, adult; Z88.1 Allergy status to other antibiotic agents; Z91.030 Bee allergy status; Z79.899 Other long term (current) drug therapy | CPT/HCPCS: 99283 ==